=== PATIENT | male | born 1935 | race Two or more races ===

== ENCOUNTER 2020-10-17 11:02 | Emergency (ER) | payer OTHER ==
[~2020-10-17] VITALS: Ht 165.1 cm; Wt 67.1 kg
[~2020-10-17 11:02] MED LIST: CRESTOR5 MG PO; DIOVAN40 MG PO; GLUCOPHAGE XR500 MG; NITROSTAT0.4 MG; PROCARDIA90 MG/BLIS PO; PROSCAR5 MG; SEROQUEL25 MG; SIMVASTATIN40 MG; VIAGRA100 MG
[2020-10-28] MEDS ORDERED: LIPITOR20 MG (01:09)
[2020-10-28] MEDS ORDERED: PLAVIX75 MG (01:10)
[2020-10-28] MEDS ORDERED: ECOTRIN81 MG (01:10)
[2020-10-28] MEDS ORDERED: CARVEDILOL ER40 MG (01:10)
[2020-10-28] MEDS ORDERED: ZANTAC25 MG/1 ML (01:10)
[2020-10-30] MEDS ORDERED: LIPITOR20 MG PO (11:30)
[2020-10-30] MEDS ORDERED: CLOPIDOGREL BIS75 MG PO (11:30)
[2020-10-30] MEDS ORDERED: LOSARTAN POTASS25 MG PO (11:30)
[2020-10-30] MEDS ORDERED: ISOSORBIDE MONO30 MG PO (11:30)
[2020-10-30] MEDS ORDERED: ST. JOSEPH ASPI81 M2 PO (11:30)
== END 2020-10-17 16:32 | disposition home or self-care (01) ==
LOC: ER 11:02
DX: N39.0 Urinary tract infection, site not specified (principal)